=== PATIENT | male | born 1940 | race Caucasian/White ===

== ENCOUNTER 2018-03-15 17:13 | Inpatient (IN) | payer OTHER, MEDICARE ==
[~2018-03-15] VITALS: Ht 185.4 cm; Wt 93.8 kg
[~2018-03-15 17:13] MED LIST: ASPIRIN BUFFER325 M1 PO; DIOVAN HCT 31 TABLE1 PO; DIOVAN40 MG PO; LEXAPRO10 MG PO; LIPITOR20 MG PO; LIPITOR5 MG PO; LOW-DOSE ASPIRI81 MG PO; NORVASC10 M1 PO; NORVASC2.5 MG PO; TRAZODONE HCL50 MG PO; VITAMIN D400 UNIT PO
[2018-03-15 18:26] LABS: HEMATOCRIT 48.3 % (38.0-50.0); HEMOGLOBIN 16.1 G/DL (12.5-16.6); MCH 33.4 PG (29.0-34.0); MCHC 33.3 G/DL (30.0-36.0); MCV 100.2 FL (86-99); PLATELET COUNT 218 K/uL (156-360); RBC DIS.WIDTH-CV 12.9 % (11.8-14.6); RED BLOOD COUNT 4.82 M/uL (4.00-5.50); WHITE BLOOD COUNT 9.1 K/uL (4.1-10.2)
[2018-03-15 18:35] LABS: ALBUMIN 3.9 g/dL (3.2-4.8)
[2018-03-15 18:36] LABS: CHLORIDE 101 mEq/L (99-109); POTASSIUM 4.7 mEq/L (3.7-5.4); SODIUM 144 mEq/L (136-147)
[2018-03-15 18:38] LABS: GLUCOSE 121 mg/dL (70-99); TOTAL PROTEIN 6.7 g/dL (6.4-8.3)
[2018-03-15 18:40] LABS: TOTAL BILIRUBIN 0.4 mg/dL (0.0-1.0)
[2018-03-15 18:41] LABS: ALKALINE PHOSPHATASE 56 IU/L (3-129)
[2018-03-15 18:42] LABS: CREATININE 0.9 mg/dL (0.6-1.3); GFR ESTIMATE (CALCULATED) > 59 mL/min/ (58.99-99999)
[2018-03-15 18:43] LABS: AST (GOT) 40 IU/L (2-34); UREA NITROGEN (BUN) 33 mg/dL (9-23)
[2018-03-15 18:44] LABS: ALT (GPT) 37 IU/L (3-49)
[2018-03-15 18:48] LABS: TROP-I INTERPRETATION NEGATIVE; TROPONIN-I 0.01 ng/mL (0.0-0.30)
[2018-03-15 21:51] LABS: APPEARANCE SL.HAZY ((CLEAR)); BILIRUBIN NEGATIVE; BLOOD NEGATIVE; COLOR YELLOW ((YELLOW)); GLUCOSE (STRIP) NEGATIVE; KETONES NEGATIVE; LEUKOCYTES NEGATIVE; NITRITE NEGATIVE; PROTEIN (STRIP) NEGATIVE; UROBILINOGEN 0.2 MG/DL (0.2-1.0)
[2018-03-15] MEDS ORDERED: AVENTYL,PAMELOR50 MG PO (21:56)
[2018-03-15 21:57] LABS: BACTERIA NONE SEEN /HPF; EPITHELIAL CELLS RARE /HPF; MUCUS TRACE /LPF; RED BLOOD CELLS 0-5 /HPF (0-5); UCUL ADDED? NO; WHITE BLOOD CELLS 0-5 /HPF (0-5)
[2018-03-15] MEDS ORDERED: BUPROPION HCL150 M2 PO (21:57)
[2018-03-15] MEDS ORDERED: RILUZOLE50 MG PO (21:58)
[2018-03-15] MEDS ORDERED: HYDROCORTISONE30 G2 TP (21:58)
[2018-03-15] MEDS ORDERED: PRAVASTATIN SOD40 MG PO (21:59)
[2018-03-15] MEDS ORDERED: PANTOPRAZOLE SO40 MG PO (22:01)
[2018-03-15] MEDS ORDERED: CYANOCOBALAM1000 MCG PO (22:03)
[2018-03-15 22:41] VITALS: BP 156/76
[2018-03-16 03:48] VITALS: BP 132/97
[2018-03-16 05:11] LABS: HEMOGLOBIN 14.9 G/DL (12.5-16.6); MCH 32.9 PG (29.0-34.0); MCHC 33.1 G/DL (30.0-36.0); MCV 99.3 FL (86-99); PLATELET COUNT 227 K/uL (156-360); RBC DIS.WIDTH-CV 12.7 % (11.8-14.6); RBC DIS.WIDTH-SD 46.7 % (39-53); RED BLOOD COUNT 4.53 M/uL (4.00-5.50); WHITE BLOOD COUNT 8.8 K/uL (4.1-10.2)
[2018-03-16 05:38] LABS: ALBUMIN 3.6 G/DL (3.2-4.8); ALKALINE PHOSPHATASE 48 IU/L (3-129); ALT (GPT) 24 IU/L (3-49); AST (GOT) 30 IU/L (2-34); CHLORIDE 104 MEQ/L (99-109); CREATININE 0.7 MG/DL (0.6-1.3); GFR ESTIMATE (CALCULATED) > 59 mL/min/ (58.99-99999); GLUCOSE 93 mg/dL (70-99); POTASSIUM 4.2 MEQ/L (3.7-5.4); SODIUM 142 MEQ/L (136-147); TOTAL BILIRUBIN 0.5 MG/DL (0.0-1.0); TOTAL PROTEIN 6.2 G/DL (6.4-8.3); UREA NITROGEN (BUN) 26 mg/dL (9-23)
[2018-03-16 07:37] VITALS: BP 109/56
[2018-03-16 16:04] VITALS: BP 110/87
[2018-03-16 18:50] VITALS: BP 157/90
[2018-03-17 00:05] VITALS: BP 159/86
[2018-03-17 09:30] VITALS: BP 134/65
[2018-03-17 11:24] VITALS: BP 138/72
[2018-03-17 15:10] VITALS: BP 124/62
[2018-03-17 19:30] VITALS: BP 128/72
[2018-03-17 23:53] VITALS: BP 132/77
[2018-03-18 04:22] VITALS: BP 130/73
[2018-03-18 04:59] LABS: BASOPHIL (%) 0.2 % (0-1); EOSINOPHIL (%) 2.2 % (0-5); EOSINOPHIL COUNT 0.2 K/uL (0-0.3); HEMATOCRIT 50.1 % (38.0-50.0); HEMOGLOBIN 16.9 G/DL (12.5-16.6); IMMATURE GRANULOCYTE (%) 0.4 % (0.0-0.7); LYMPHOCYTE COUNT 2.1 K/uL (1.0-2.8); MCH 33.4 PG (29.0-34.0); MCHC 33.7 G/DL (30.0-36.0); MONOCYTE (%) 9.9 % (3-12); MONOCYTE COUNT 0.9 K/uL (0-0.8); NEUTROPHIL (%) 65.3 % (45-76); NEUTROPHIL COUNT 6.1 K/uL (1.8-6.4); PLATELET COUNT 227 K/uL (156-360); RBC DIS.WIDTH-CV 12.6 % (11.8-14.6); RBC DIS.WIDTH-SD 45.9 % (39-53); RED BLOOD COUNT 5.06 M/uL (4.00-5.50); WHITE BLOOD COUNT 9.4 K/uL (4.1-10.2)
[2018-03-18 05:05] LABS: CHLORIDE 100 mEq/L (99-109); POTASSIUM 4.3 mEq/L (3.7-5.4); SODIUM 142 mEq/L (136-147)
[2018-03-18 05:07] LABS: GLUCOSE 104 mg/dL (70-99)
[2018-03-18 05:10] LABS: CREATININE 0.8 mg/dL (0.6-1.3); GFR ESTIMATE (CALCULATED) > 59 mL/min/ (58.99-99999)
[2018-03-18 05:11] LABS: UREA NITROGEN (BUN) 24 mg/dL (9-23)
[2018-03-18 06:55] VITALS: BP 167/88
[2018-03-18] MEDS ORDERED: AUGMENTIN875 MG PO (11:15)
[2018-03-18 11:30] VITALS: BP 135/81
[2018-03-18] MEDS ORDERED: AUGMENTIN125 MG/51 PO (16:00)
== END 2018-03-18 16:23 | disposition home health service (06) | DRG 177 ==
LOC: EME 17:13 → EDOF 20:37 → ENRESERV 20:52 → 4SOUTH 22:40 → ENPENDDIS 03-18 → 4SOUTH 03-18 16:23
PROVIDERS: Emergency Medicine; Physician Assistant; Student in an Organized Health Care Education/Training Program
PROC: 0HQ0XZZ Repair Scalp Skin, External Approach (ICD-10-PCS; principal; 2018-03-15)
DX: J69.0 Pneumonitis due to inhalation of food and vomit (principal); J96.01 Acute respiratory failure with hypoxia; G12.21 Amyotrophic lateral sclerosis; S01.01XA Laceration without foreign body of scalp, initial encounter; W18.30XA Fall on same level, unspecified, initial encounter; R13.10 Dysphagia, unspecified; R47.1 Dysarthria and anarthria; E78.5 Hyperlipidemia, unspecified; G47.30 Sleep apnea, unspecified; I10 Essential (primary) hypertension; F32.9 Major depressive disorder, single episode, unspecified; Z91.81 History of falling; Z93.1 Gastrostomy status; Z79.82 Long term (current) use of aspirin
CPT/HCPCS: 70450; 71045; 71046; 71275; 74230; 80048; 80053; 81003; 84145 90; 84484; 85025; 85027; 92610 GN; 92611 GN; 94799; 97530 GO; 99202; 99281; 99285; G0378; G8978 GP CK; G8979 GP CI; G8987 GO CI; G8987 GO CJ; J0456; J0696; J1650; J7030

== ENCOUNTER 2018-05-09 05:48 | Inpatient (IN) | payer OTHER, BC ==
[2018-05-09] VITALS (14 sets, daily range): BP systolic 83–150; BP diastolic 48–93
[~2018-05-09] VITALS: Ht 182.9 cm; Wt 91.6 kg
[~2018-05-09 05:48] MED LIST changes: +AUGMENTIN125 MG/51 PO; +AUGMENTIN875 MG PO; +AVENTYL,PAMELOR50 MG PO; +BUPROPION HCL150 M2 PO; +CYANOCOBALAM1000 MCG PO; +HYDROCORTISONE30 G2 TP; +PANTOPRAZOLE SO40 MG PO; +PRAVASTATIN SOD40 MG PO; +RILUZOLE50 MG PO
[2018-05-09 06:05] LABS: BASOPHIL (%) 0.3 % (0-1); EOSINOPHIL (%) 0.8 % (0-5); EOSINOPHIL COUNT 0.1 K/uL (0-0.3); HEMATOCRIT 44.5 % (38.0-50.0); HEMOGLOBIN 14.7 G/DL (12.5-16.6); IMMATURE GRANULOCYTE (%) 1.6 % (0.0-0.7); LYMPHOCYTE (%) 28.8 % (15-42); MCH 33.7 PG (29.0-34.0); MCV 102.1 FL (86-99); MONOCYTE (%) 9.6 % (3-12); NEUTROPHIL (%) 58.9 % (45-76); NEUTROPHIL COUNT 6.1 K/uL (1.8-6.4); PLATELET COUNT 219 K/uL (156-360); RBC DIS.WIDTH-CV 13.2 % (11.8-14.6); RBC DIS.WIDTH-SD 49.5 % (39-53); RED BLOOD COUNT 4.36 M/uL (4.00-5.50); WHITE BLOOD COUNT 10.3 K/uL (4.1-10.2)
[2018-05-09 06:11] LABS: COMMENTS - BLOOD GASES C+; DEVICE VENT; FI02 100 %; MECHANICAL RATE 18 resp/min; MODE AC; PCO2 49 mm Hg (35-45); PEEP 5 CM/H20; PO2 246 mm Hg (80-100); SITE RR; TIDAL VOLUME 500 ML; TOTAL RESP RATE 18 resp/min; pH 7.37 (7.35-7.45)
[2018-05-09 06:12] LABS: BASE EXCESS 2.1 mEq/L (-3 to +3); BICARBONATE 28.3 mEq/L (22-26); CARBOXY HGB 1.5 % (0-5); METHEMOGLOBIN 0.9 % (0-1.5)
[2018-05-09 06:14] LABS: PTT 26.2 SEC (25-37)
[2018-05-09 06:16] LABS: AMYLASE 63 IU/L (1-118); CHLORIDE 100 mEq/L (99-109); POTASSIUM 4.7 mEq/L (3.7-5.4); SODIUM 140 mEq/L (136-147)
[2018-05-09 06:18] LABS: GLUCOSE 224 mg/dL (70-99)
[2018-05-09 06:21] LABS: SERUM ETHYL ALCOHOL < 10 mg/dL
[2018-05-09 06:22] LABS: CREATININE 0.9 mg/dL (0.6-1.3); GFR ESTIMATE (CALCULATED) > 59 mL/min/ (58.99-99999); UREA NITROGEN (BUN) 30 mg/dL (9-23)
[2018-05-09 06:25] LABS: LIPASE 43 U/L (1.0-51.0)
[2018-05-09 06:27] LABS: APPEARANCE CLEAR ((CLEAR)); BILIRUBIN NEGATIVE; BLOOD NEGATIVE; COLOR YELLOW ((YELLOW)); GLUCOSE (STRIP) NEGATIVE; KETONES NEGATIVE; LEUKOCYTES NEGATIVE; NITRITE NEGATIVE; PROTEIN (STRIP) 30; SPECIFIC GRAVITY 1.021 (1.000-1.030); UCUL ADDED? NO; UROBILINOGEN 0.2 MG/DL (0.2-1.0)
[2018-05-09 06:31] LABS: TROP-I INTERPRETATION NEGATIVE; TROPONIN-I 0.01 ng/mL (0.0-0.30)
[2018-05-09 06:44] LABS: PHENCYCLIDINE NEGATIVE (25 ng/mL); THC CANNABINOIDS NEGATIVE (50 ng/mL)
[2018-05-09 06:45] LABS: AMPHETAMINE NEGATIVE (500 ng/mL); BARBITURATES NEGATIVE (200 ng/mL); BENZODIAZEPINES NEGATIVE (150 ng/mL); BUPRENORPHINE NEGATIVE (10 ng/mL); COCAINE NEGATIVE (150 ng/mL); METHADONE NEGATIVE (200 ng/mL); METHAMPHETAMINE NEGATIVE (500 ng/mL); OPIATES (MORPHINE) NEGATIVE (100 ng/mL); OXYCODONE NEGATIVE (100 ng/mL); PROPOXYPHENE NEGATIVE (300 ng/mL); TRICYCLIC ANTIDEPRESSANTS PRESUMPTIVE POSITIVE (300 ng/mL)
[2018-05-09 07:26] LABS: TRIGLYCERIDES 114 MG/DL (Normal: <150)
[2018-05-09 12:04] LABS: BASOPHIL (%) 0.1 % (0-1); EOSINOPHIL (%) 0 % (0-5); HEMATOCRIT 44.6 % (38.0-50.0); HEMOGLOBIN 14.7 G/DL (12.5-16.6); IMMATURE GRANULOCYTE (%) 0.4 % (0.0-0.7); LYMPHOCYTE (%) 3.7 % (15-42); LYMPHOCYTE COUNT 0.6 K/uL (1.0-2.8); MCH 33.4 PG (29.0-34.0); MCV 101.4 FL (86-99); MONOCYTE (%) 10.2 % (3-12); MONOCYTE COUNT 1.7 K/uL (0-0.8); NEUTROPHIL (%) 85.6 % (45-76); PLATELET COUNT 223 K/uL (156-360); RBC DIS.WIDTH-CV 13.2 % (11.8-14.6); RBC DIS.WIDTH-SD 49.9 % (39-53); WHITE BLOOD COUNT 16.3 K/uL (4.1-10.2)
[2018-05-09 12:11] LABS: INTER. NORMALIZED RATIO 1.1
[2018-05-09 12:24] LABS: CHLORIDE 106 MEQ/L (99-109); CREATINE KINASE 285 IU/L (1-294); CREATININE 0.6 MG/DL (0.6-1.3); GFR ESTIMATE (CALCULATED) > 59 mL/min/ (58.99-99999); GLUCOSE 139 mg/dL (70-99); MAGNESIUM 1.9 mg/dl (1.3-2.7); PHOSPHORUS 4.2 mg/dL (2.5-4.9); POTASSIUM 4.5 MEQ/L (3.7-5.4); SODIUM 142 MEQ/L (136-147); UREA NITROGEN (BUN) 26 mg/dL (9-23)
[2018-05-09] MEDS ORDERED: ADULT ASPIRIN81 MG PO (12:26)
[2018-05-09 12:47] LABS: TROP-I INTERPRETATION NEGATIVE; TROPONIN-I 0.04 ng/mL (0.0-0.30)
[2018-05-09 18:31] LABS: BASOPHIL (%) 0.1 % (0-1); EOSINOPHIL (%) 0 % (0-5); HEMATOCRIT 40.9 % (38.0-50.0); HEMOGLOBIN 13.7 G/DL (12.5-16.6); IMMATURE GRANULOCYTE (%) 0.6 % (0.0-0.7); LYMPHOCYTE (%) 3.2 % (15-42); LYMPHOCYTE COUNT 0.5 K/uL (1.0-2.8); MCH 33.6 PG (29.0-34.0); MCHC 33.5 G/DL (30.0-36.0); MCV 100.2 FL (86-99); MONOCYTE COUNT 1.4 K/uL (0-0.8); NEUTROPHIL (%) 86.1 % (45-76); NEUTROPHIL COUNT 12.1 K/uL (1.8-6.4); PLATELET COUNT 193 K/uL (156-360); RBC DIS.WIDTH-CV 13.3 % (11.8-14.6); RBC DIS.WIDTH-SD 49.3 % (39-53); RED BLOOD COUNT 4.08 M/uL (4.00-5.50)
[2018-05-09 18:50] LABS: INTER. NORMALIZED RATIO 1.1
[2018-05-09 18:54] LABS: CHLORIDE 108 MEQ/L (99-109); CREATINE KINASE 367 IU/L (1-294); CREATININE 0.5 MG/DL (0.6-1.3); GFR ESTIMATE (CALCULATED) > 59 mL/min/ (58.99-99999); GLUCOSE 134 mg/dL (70-99); MAGNESIUM 1.9 mg/dl (1.3-2.7); PHOSPHORUS 3.3 mg/dL (2.5-4.9); POTASSIUM 3.9 MEQ/L (3.7-5.4); SODIUM 140 MEQ/L (136-147); UREA NITROGEN (BUN) 25 mg/dL (9-23)
[2018-05-09 18:58] LABS: TROP-I INTERPRETATION NEGATIVE; TROPONIN-I 0.03 ng/mL (0.0-0.30)
[2018-05-10] VITALS (14 sets, daily range): BP systolic 85–182; BP diastolic 54–91
[2018-05-10 00:50] LABS: BASOPHIL (%) 0.1 % (0-1); EOSINOPHIL (%) 0 % (0-5); HEMATOCRIT 41.3 % (38.0-50.0); HEMOGLOBIN 14.1 G/DL (12.5-16.6); IMMATURE GRANULOCYTE (%) 0.5 % (0.0-0.7); LYMPHOCYTE (%) 4.8 % (15-42); LYMPHOCYTE COUNT 0.7 K/uL (1.0-2.8); MCH 33.7 PG (29.0-34.0); MCHC 34.1 G/DL (30.0-36.0); MCV 98.6 FL (86-99); MONOCYTE (%) 9.7 % (3-12); MONOCYTE COUNT 1.4 K/uL (0-0.8); NEUTROPHIL (%) 84.9 % (45-76); NEUTROPHIL COUNT 12.5 K/uL (1.8-6.4); PLATELET COUNT 206 K/uL (156-360); RBC DIS.WIDTH-CV 13.1 % (11.8-14.6); RBC DIS.WIDTH-SD 47.3 % (39-53); RED BLOOD COUNT 4.19 M/uL (4.00-5.50); WHITE BLOOD COUNT 14.7 K/uL (4.1-10.2)
[2018-05-10 00:56] LABS: INTER. NORMALIZED RATIO 1.1
[2018-05-10 01:18] LABS: CHLORIDE 109 mEq/L (99-109); SODIUM 139 mEq/L (136-147); TROP-I INTERPRETATION NEGATIVE; TROPONIN-I 0.02 ng/mL (0.0-0.30)
[2018-05-10 01:19] LABS: MAGNESIUM 2.1 mg/dL (1.3-2.7)
[2018-05-10 01:20] LABS: GLUCOSE 137 mg/dL (70-99)
[2018-05-10 01:24] LABS: CREATININE 0.6 mg/dL (0.6-1.3); GFR ESTIMATE (CALCULATED) > 59 mL/min/ (58.99-99999)
[2018-05-10 01:25] LABS: UREA NITROGEN (BUN) 25 mg/dL (9-23)
[2018-05-10 01:26] LABS: CREATINE KINASE 597 IU/L (1-294)
[2018-05-10 06:22] LABS: BASOPHIL (%) 0.1 % (0-1); EOSINOPHIL (%) 0.1 % (0-5); HEMATOCRIT 40.7 % (38.0-50.0); HEMOGLOBIN 13.9 G/DL (12.5-16.6); IMMATURE GRANULOCYTE (%) 0.2 % (0.0-0.7); LYMPHOCYTE (%) 4.1 % (15-42); LYMPHOCYTE COUNT 0.5 K/uL (1.0-2.8); MCH 33.3 PG (29.0-34.0); MCHC 34.2 G/DL (30.0-36.0); MCV 97.6 FL (86-99); MONOCYTE (%) 8.8 % (3-12); MONOCYTE COUNT 1.1 K/uL (0-0.8); NEUTROPHIL (%) 86.7 % (45-76); NEUTROPHIL COUNT 10.5 K/uL (1.8-6.4); PLATELET COUNT 189 K/uL (156-360); RBC DIS.WIDTH-CV 13.2 % (11.8-14.6); RBC DIS.WIDTH-SD 47.1 % (39-53); RED BLOOD COUNT 4.17 M/uL (4.00-5.50); WHITE BLOOD COUNT 12.1 K/uL (4.1-10.2)
[2018-05-10 06:37] LABS: INTER. NORMALIZED RATIO 1.1
[2018-05-10 06:43] LABS: TROP-I INTERPRETATION NEGATIVE; TROPONIN-I < 0.01 ng/mL (0.0-0.30)
[2018-05-10 06:51] LABS: CHLORIDE 107 MEQ/L (99-109); CREATINE KINASE 596 IU/L (1-294); CREATININE 0.4 MG/DL (0.6-1.3); GFR ESTIMATE (CALCULATED) > 59 mL/min/ (58.99-99999); GLUCOSE 132 mg/dL (70-99); MAGNESIUM 1.9 mg/dl (1.3-2.7); PHOSPHORUS 2.3 mg/dL (2.5-4.9); POTASSIUM 3.5 MEQ/L (3.7-5.4); SODIUM 141 MEQ/L (136-147); UREA NITROGEN (BUN) 20 mg/dL (9-23)
[2018-05-10 09:13] LABS: SITE R FEMORAL ALINE
[2018-05-10 09:14] LABS: BASE EXCESS -0.6 mEq/L (-3 to +3); BICARBONATE 24.9 mEq/L (22-26); CARBOXY HGB 1.1 % (0-5); COMMENTS - BLOOD GASES C+; DEVICE VENT; FI02 30 %; MECHANICAL RATE 18 resp/min; METHEMOGLOBIN 1.2 % (0-1.5); MODE AC; O2 SATURATION (CALCULATED) 97.5 % (95-99); PCO2 43 mm Hg (35-45); PEEP 5 CM/H20; PO2 101 mm Hg (80-100); TIDAL VOLUME 500 ML; TOTAL RESP RATE 19 resp/min; pH 7.37 (7.35-7.45)
[2018-05-10 11:14] LABS: ALT (GPT) 61 IU/L (3-49); AST (GOT) 76 IU/L (2-34)
[2018-05-10 11:47] LABS: BASOPHIL (%) 0.1 % (0-1); EOSINOPHIL (%) 0 % (0-5); HEMATOCRIT 40.1 % (38.0-50.0); HEMOGLOBIN 13.6 G/DL (12.5-16.6); IMMATURE GRANULOCYTE (%) 0.3 % (0.0-0.7); LYMPHOCYTE COUNT 0.6 K/uL (1.0-2.8); MCH 32.9 PG (29.0-34.0); MCHC 33.9 G/DL (30.0-36.0); MCV 97.1 FL (86-99); NEUTROPHIL (%) 86.6 % (45-76); NEUTROPHIL COUNT 10.3 K/uL (1.8-6.4); PLATELET COUNT 188 K/uL (156-360); RBC DIS.WIDTH-CV 13.1 % (11.8-14.6); RED BLOOD COUNT 4.13 M/uL (4.00-5.50); WHITE BLOOD COUNT 11.9 K/uL (4.1-10.2)
[2018-05-10 12:05] LABS: TROP-I INTERPRETATION NEGATIVE; TROPONIN-I < 0.01 ng/mL (0.0-0.30)
[2018-05-10 12:11] LABS: CHLORIDE 109 MEQ/L (99-109); CREATININE 0.4 MG/DL (0.6-1.3); GFR ESTIMATE (CALCULATED) > 59 mL/min/ (58.99-99999); GLUCOSE 114 mg/dL (70-99); MAGNESIUM 1.8 mg/dl (1.3-2.7); POTASSIUM 3.3 MEQ/L (3.7-5.4); SODIUM 142 MEQ/L (136-147); UREA NITROGEN (BUN) 17 mg/dL (9-23)
[2018-05-10 12:12] LABS: INTER. NORMALIZED RATIO 1.1
== END 2018-05-10 14:47 | DRG 297 ==
LOC: EME → EDBD 05:48 → EME 05:48 → EDOF 06:26 → ENRESERV 06:26 → 4WEST 07:32
PROVIDERS: Emergency Medicine; Specialist; Surgery
PROC: 5A1945Z Respiratory Ventilation, 24-96 Consecutive Hours (ICD-10-PCS; principal; 2018-05-09)
PROC: 4A133J1 Monitoring of Arterial Pulse, Peripheral, Percutaneous Approach (ICD-10-PCS; 2018-05-09)
PROC: 4A133B1 Monitoring of Arterial Pressure, Peripheral, Percutaneous Approach (ICD-10-PCS; 2018-05-09)
PROC: 04HY32Z Insertion of Monitoring Device into Lower Artery, Percutaneous Approach (ICD-10-PCS; 2018-05-09)
DX: I46.9 Cardiac arrest, cause unspecified (principal); G93.1 Anoxic brain damage, not elsewhere classified; G12.21 Amyotrophic lateral sclerosis; G25.3 Myoclonus; I45.10 Unspecified right bundle-branch block; I11.9 Hypertensive heart disease without heart failure; E11.9 Type 2 diabetes mellitus without complications; R09.02 Hypoxemia; E78.5 Hyperlipidemia, unspecified; F32.9 Major depressive disorder, single episode, unspecified; F41.9 Anxiety disorder, unspecified; R13.10 Dysphagia, unspecified; Z66 Do not resuscitate; Z93.1 Gastrostomy status; Z79.82 Long term (current) use of aspirin; Z91.81 History of falling
CPT/HCPCS: 36600; 70450; 71045; 71275; 74177; 80047; 80048; 80048 91; 81003; 82150; 82330; 82550 91; 82803; 82948; 83605; 83690; 83735; 84100; 84450; 84460; 84478; 84484; 85025; 85025 91; 85610; 85730; 86850; 86900; 86901; 87070; 87205; 87641; 93005; 93306; 94002; 94640; 94640 76; 94760; 99202; 99281; 99285; G0480; J1650; J1953; J2060; J2543; J2704; J3010; J3370; J7030; J7050; S0028